=== PATIENT | female | born 1995 | race Caucasian/White ===

== ENCOUNTER 2017-04-10 06:00 | Inpatient (IN) ==
[2017-04-10] MEDS ORDERED: Famotidine 20 MG/2 ML VIAL IVP PRN (06:17)
[2017-04-10] MEDS ORDERED: *HR* Nalbuphine 20 MG/ML AMPUL IVP PRN (06:17)
[2017-04-10] MEDS ORDERED: Metoclopramide 10 MG/2 ML VIAL IVP PRN (06:17)
[2017-04-10] MEDS ORDERED: Naloxone 0.4 MG/ML INJ IVP PRN (06:17)
[2017-04-10] MEDS ORDERED: Penicillin G Potassium 5,000,000 UNIT in 0.9 % Sodium Chloride Mini Bag 100 ML IVPB ONE (06:17)
[2017-04-10] MEDS ORDERED: Ringers Solution, Lactated 1,000 ML ONE (06:29)
[2017-04-10] MEDS ORDERED: Oxytocin 20 units/ LR 1000 mL 20 UNIT/1,000 ML BAG IVC SCH (06:30)
[2017-04-10] MEDS ORDERED: Ringers Solution, Lactated 1,000 ML IVC SCH (06:30)
[2017-04-10 06:53] LABS: Basophils % 0.4 %; Eosinophils # 0.2 K/mcL (0.0-0.6); Eosinophils % 1.8 %; Hematocrit 37.3 % (35.3-44.9); Hemoglobin 12.1 g/dL (11.5-15.4); Immature Granulocytes % 0.7 % (0-4); Lymphocytes % 23.6 %; Mean Corpuscular HGB Conc 32.4 g/dL (31.6-35.5); Mean Corpuscular Hemoglobin 27.4 pg (28.0-33.3); Mean Corpuscular Volume 84.4 fL (83.0-100.0); Mean Platelet Volume 12.5 fL (9.4-12.4); Monocytes # 0.6 K/mcL (0.0-1.3); Monocytes % 7.1 %; Neutrophils # 5.7 K/mcL (1.6-8.9); Platelet Count 178 K/mcL (140-400); Red Blood Count 4.42 M/mcL (3.82-4.97); Red Cell Distribution Width 13.6 % (11.5-14.5); Segmented Neutrophils % 66.4 %
[2017-04-10 06:59] LABS: Amphetamine Screen,Urine Negative ng/mL (Cutoff=1000); Barbiturate Screen,Urine Negative ng/mL (Cutoff=200); Benzodiazepines Screen,Urine Negative ng/mL (Cutoff=200); Cannabinoid Screen,Urine Negative ng/mL (Cutoff = 50); Cocaine Screen,Urine Negative ng/mL (Cutoff= 300); Opiate Screen,Urine Negative ng/mL (Cutoff=300); Phencyclidine Screen,Urine Negative ng/mL (Cutoff=25)
[2017-04-10] MEDS ORDERED: miSOPROStol 100 MCG TABLET PO ONE (07:10)
[2017-04-10] MEDS ORDERED: Methylergonovine 0.2 MG/ML AMPUL IM ONE (07:10)
[2017-04-10 07:48] LABS: Platelet Estimate Normal (Normal)
[2017-04-10] MEDS ORDERED: Penicillin G Potassium 2,500,000 UNIT in 0.9 % Sodium Chloride 100 ML IVPB SCH (08:00)
--- NOTE | 2017-04-10 09:39 | OB Labor Progress Note ---
Date of Encounter: 04/10/17 Time of Encounter: 09:37 Labor Progress Note - Subjective Subjective: Patient resting in bed, coping well with contractions. - Cervix Cervix: 1-2/70/-2 - Heart Tones Heart Tones: 135 bpm, moderate variability, no accels, no decels - [place]: 2-4 min - Interventions Interventions: SVE Sylvester balloon 30 mL placed in cervix - Plan Plan: Continue labor management Leave Pitocin at current rate of 8 mu/min Anticipate
[2017-04-10] MEDS: Penicillin G Potassium 2,500,000 UNIT in 0.9 % Sodium Chloride 100 ML IVPB SCH ×2 (11:00→15:20)
[2017-04-10] MEDS: Ondansetron 4 MG/2 ML VIAL IVP PRN ×2 (11:05→14:57)
--- NOTE | 2017-04-10 11:19 | OB/GYN History & Physical ---
Date of Encounter: 04/10/17 Time of Encounter: 11:17 Assessment and Plan (1) 40 weeks gestation of Current visit: Yes Status: Acute (2) Group B streptococcal infection during Current visit: Yes Status: Acute (3) Encounter for elective induction of labor Current visit: Yes Status: Acute 21-year-old at 40+3 weeks gestation by meaghan GBS+ Elective IOL Plans epidural Plan: Admit to L&D CEFM Anesthesia consult Up ad ward until epidural placement LR @ 125mL Sylvester bulb placement May have nubain for pain management Dr. Boyd aware of POC and agrees History of Present Illness HPI: This is a 21 year old at 40+3 weeks' gestation by US who presents for induction of labor for postdates. Upon evaluation, she was noted to be 1-2/70/- 2 dilated and to have membranes intact. She was then admitted to L&D for management. She reports movements and denies contractions/rupture membranes/vaginal bleeding/headache/right upper abdominal pain/changes in vision. She desires future fertility. Plans for epidural Current OB history: Blood type B+ GBS positive Hepatitis B negative HIV negative RPR non-reactive Rubella immune Varicella nonimmune TWlbs BP range: 98-124/58-84 Meds: PNV Past Med Surg Social Fam HX - Past Medical History Medical history: no medical history Psychiatric history: no psych history - Social History Smoking Status: Never smoker Smokeless Tobacco Status: No Alcohol use: none Drug use: none - Family History Father Living Status: Still Living Obstetrical History - Pregnancies : 1 Para: 0 Term: 0 : 0 Ab's: 0 Livin Medications and Allergies Vit/Iron Fumarate/FA [ Tablet] 1 each PO DAILY 04/10/17 [ History] 3 Allergy/AdvReac Type Severity Reaction Status Date / Time No Known Allergies Allergy Verified 04/10/17 06:19 Review of System OB All systems PM: reviewed and no additional remarkable complaints except as stated Exam - Vital Signs Vital signs: Initial Vital Signs Temp Pulse BP 98.2 F 100 124/74 04/10/17 06:30 04/10/17 06:30 04/10/17 06:30 - Constitutional Constitutional: well developed, well nourished, no acute distress, average body habitus - HEENT HEENT: PERRL, Normocephaly, Mucus Membranes Moist - Neck Neck exam: full ROM, supple, trachea midline - Lungs Respiratory exam: CTAB - Cardiovascular Cardiovascular exam: RRR, +S1, +S2 - Breasts Breast: bilateral: normal - Abdomen Abdomen: Present: bowel sounds normal, gravid, non tender - Extremities Extremities exam: full ROM, joint swelling, radial pulses palpable and symmetrical - Vagina Vagina: Present: normal moisture - Cervix Dilation: 1 Effacement: 70 Station: -2 - Uterus Uterus exam: Present: normal size, normal contour Results Result Diagrams: 04/10/17 06:45 Abnormal lab results MCH 27.4 pg (28.0-33.3) L 04/10/17 06:45 MPV 12.5 fL (9.4-12.4) H 04/10/17 06:45 All other labs normal. - VTE Reasons for not Prescribing Prophylaxis: Treatment not Indicated - Low risk for VTE
--- NOTE | 2017-04-10 14:15 | Anesthesia Evaluation PreOp ---
Date of Encounter: 04/10/17 Time of Encounter: 14:13 - Past History Planned Operation: AMEE Cardiac History: Denies any Significant Hx Pulmonary History: Denies Any Significant HX PROJECT MANAGER PROCESS DEVELOPMENT History: Denies Any Significant HX Other Medical History: Denies Any Significant HX Anesthesia History: No Prior Anesthetic Complications (never had procedure requiring NA; denies personal or family h/o GA complications) : Yes Test: Positive Alcohol Use: none Drug use: none Medications and Allergies Vit/Iron Fumarate/FA [ Tablet] 1 each PO DAILY 04/10/17 [ History] 3 Allergy/AdvReac Type Severity Reaction Status Date / Time No Known Allergies Allergy Verified 04/10/17 06:19 - Meds/Allergy Pre-op Review Medications Reviewed: Yes Allergies Reviewed: Yes Beta Blockers on Current Med List: No Anesthesia Results - Labs 04/10/17 06:45 Anesthesia Exam 103/59, HR 72, RR 16 Height: 1.68m Weight: 73kg NPO (# of Hours): >8hrs Pain Scale: 3 Pain Scale Used: Numeric (1 - 10), Beard-Casanova (Faces) - HEENT Pupil (Motor): Pupils equal Mallampati: III Teeth: Normal Oral Opening: Less than or equal to 3 - PROJECT MANAGER PROCESS DEVELOPMENT LOC: Oriented PROJECT MANAGER PROCESS DEVELOPMENT Motor: Normal RUE, Normal LUE, Normal RLE, Normal LLE, Normal Face PROJECT MANAGER PROCESS DEVELOPMENT Sensory: Normal: RUE, LUE, RLE, LLE, Face - Cardiac Rhythm: Regular Murmur: None JVD: No Carotid Bruit: No - Pulmonary Breath Sounds: bilateral Clear Respiratory Effort: Symmetrical Anesthesia Assess/Plan ASA Score: 2 Modified [place] Scale for Level of Consciousness: Cooperative, oriented, and tranquil Anesthetic Plan: Regional Autologous Blood: No Monitoring Plan: Standard Monitors Recovery Plan: Other
[2017-04-10] MEDS ORDERED: *HR* FentaNYL (PF) 100 MCG/2 ML VIAL EP ONE (14:16)
[2017-04-10] MEDS ORDERED: Bupivacaine-MPF 0.25% 10 ML VIAL EP ONE (14:16)
[2017-04-10] MEDS ORDERED: *HR* FentaNYL (PF) 100 MCG/2 ML VIAL ONE (14:20)
[2017-04-10] MEDS ORDERED: Epidural Premix (fent/bupiv) 110 ML EP ONE (14:20)
[2017-04-10] MEDS ORDERED: Epidural Premix (fent/bupiv) 110 ML EP SCH (14:30)
--- NOTE | 2017-04-10 14:34 | OB Labor Progress Note ---
Date of Encounter: 04/10/17 Time of Encounter: 14:31 Labor Progress Note - Subjective Subjective: Patient resting in bed coping well with contractions. - Cervix Cervix: 4/80/-1 - Heart Tones Heart Tones: 140 bpm, moderate variability, +15x15 accels, variable and early decels noted, non recurrent. - [place]: q2 minutes - Interventions Interventions: SVE AROM for moderate amount of light meconium fluid IUPC placed - Plan Plan: Continue labor management Increase Pitocin as needed Patient may have epidural when she desires.
--- NOTE | 2017-04-10 15:24 | Anesthesia Procedures ---
Date of Encounter: 04/10/17 Time of Encounter: 14:59 Procedures: Anesthesia - Epidural/Spinal Patient ID/Chart reviewed: Yes Patient examined: Yes OB Eval: Gestational age: 40 weeks 3 days OB Eval: : 1 OB Eval: Hx Para: 0 OB Eval: Contractions: Non-stressed pattern Consent Obtained: Yes Supplemental Oxygen: None/Room Air Site Prep: Aseptic Technique, Sterile prep and drape, Povidone-Iodine 1% Patient position: upright Local Anesthetic: Lidocaine 1% Amount of Local Anesthetic used: 3 Touhy Needle Gauge: 18 Touhy Needle Depth (cm): 4 Catheter Depth at Skin (cm): 9 Test Dose (1.5% Lido + Epi): Volume given (mls): 5 Test Dose Result: Negative Loading Dose: 0.25% Marcaine (mls): 5 Loading Dose: Fentanyl (mcg): 100 Loading Dose Administered: Thru Catheter Infusion Med: 0.125% Bupivacaine w/ 2 mcg/ml Fentanyl Infusion Rate (mls/hr): 14 (w/ demand bolus of 5mL q20min PRN) Catheter Secured in Place: Tegaderm, Tape Interspace Used: L4-L5 Loss of Resistance (SHERRI): Yes Blood: No CSF: No Paresthesia: No Vitals + FHT's: Please see Veena CASTILLO's electronic record for VS entry
--- NOTE | 2017-04-10 16:45 | OB Labor Progress Note ---
Date of Encounter: 04/10/17 Time of Encounter: 16:43 Labor Progress Note - Subjective Subjective: Patient resting in bed, denies complaint of pain with epidural in place. - Cervix Cervix: 5-6/80/-1 - Heart Tones Heart Tones: 135 bpm, moderate variability, no accels, variable and early decelerations noted. - [place]: 2-3 - Interventions Interventions: SVE Repositioned on peanut ball. - Plan Plan: Continue labor management Anticipate
--- NOTE | 2017-04-10 20:30 | OB/GYN Procedure Note ---
Delivery - Delivery Date: 04/10/17 Provider: Molly Fitzpatrick Intrapartum events: none Delivery induction: oxytocin Delivery augmentation: rupture of membranes Delivery monitor: external FHT, external uterine Anesthesia: epidural Estimated Blood Loss: 300 - Infant (s) Infant A Delivery Date: 04/10/17 Infant Delivery Time: 20:08 Presentation: vertex Position: CLARITA Route of delivery: Gender: Female Viability: Viable Pounds: 7 Ounces: 4 Weight Gram: 3.28 kg at 1 minute: 7 at 5 mins: 9 Shoulder Dystocia: not encountered Specimens collected: cord blood Placenta: spontaneous Cord: 3 umbilical vessels - Repair Episiotomy: none Laceration Description: Periurethral - Complications Delivery complications: none, meconium Delivery comments: This is a 21-year-old G1 now P1 who was admitted for elective IOL. She progressed with pitocin augmentation and AROM to the second stage of labor. She pushed for minutes. She delivered a viable female , CLARITA, over an intact perineum. The was placed on the maternal abdomen where mouth and nares were bulb suctioned. A nuchal cord was not identified. scores were 7 at one minute and 9 at five minutes. Infant weight was 7lbs 4oz (3280g). The placenta delivered spontaneously, intact, Christianson, with a 3-vessel cord. Inspection revealed no perineal, sidewall, or cervical tears and bilateral periurethral tears. All lacerations were hemostatic and thus not repaired. EBL 300mL. Placenta and umbilical artery gases were not sent. There were no complications during the procedure. Mom and baby [id number] following delivery. Dr. Boyd was present for the entire delivery. - Disposition Mom disposition: stable in LDR disposition: stable in LDR
[2017-04-10] MEDS ORDERED: ceFAZolin 1,000 MG in 0.9 % Sodium Chloride Mini Bag 100 ML IVPB SCH (21:13)
--- NOTE | 2017-04-10 21:16 | Event Note ---
Date of Encounter: 04/10/17 Time of Encounter: 21:14 RN notified k [employer] school professional that pt had increase in bleeding. Equity Structurer to bedside immediately to find pt passing some blood and many clots. Fundal pressure applied and more blood and clots expressed. Bladder emptied with straight catheter for 450mL urine. Pt continued to bleed and was given 600mg cytotec rectally followed by Methergine IM. Bimanual examination was performed with sterile gloves. Bleeding slowed. Will continue to monitor closely. Ancef 1g q8h ordered to start on .
[2017-04-10] MEDS ORDERED: Benzocaine/Menthol 56 GM AEROSOL SPRAY TP PRN (23:20)
[2017-04-10] MEDS ORDERED: Acetaminophen 325 MG TABLET PO PRN (23:20)
[2017-04-10] MEDS ORDERED: Oxytocin 20 units/ LR 1000 mL 20 UNIT/1,000 ML BAG IVC ONE (23:24)
[2017-04-10] MEDS: Oxytocin 20 units/ LR 1000 mL 20 UNIT/1,000 ML BAG IVC SCH (23:53)
[2017-04-11] MEDS: ceFAZolin 1,000 MG in 0.9 % Sodium Chloride Mini Bag 100 ML IVPB SCH ×4 (00:38→15:36)
[2017-04-11] MEDS: Ibuprofen 600 MG TABLET PO PRN ×3 (00:57→22:04)
[2017-04-11 04:35] LABS: Basophils % 0.2 %; Eosinophils % 0.3 %; Hematocrit 31.1 % (35.3-44.9); Hemoglobin 10.2 g/dL (11.5-15.4); Immature Granulocytes % 0.4 % (0-4); Lymphocytes # 1.5 K/mcL (0.6-4.6); Lymphocytes % 11.7 %; Mean Corpuscular HGB Conc 32.8 g/dL (31.6-35.5); Mean Corpuscular Hemoglobin 27.7 pg (28.0-33.3); Mean Corpuscular Volume 84.5 fL (83.0-100.0); Mean Platelet Volume 11.6 fL (9.4-12.4); Monocytes # 0.8 K/mcL (0.0-1.3); Monocytes % 6.8 %; Platelet Count 142 K/mcL (140-400); Red Blood Count 3.68 M/mcL (3.82-4.97); Red Cell Distribution Width 13.7 % (11.5-14.5); Segmented Neutrophils % 80.6 %
[2017-04-11] MEDS: Oxytocin 20 units/ LR 1000 mL 20 UNIT/1,000 ML BAG IVC SCH (07:32)
[2017-04-11] MEDS: Prenatal Vit/FA 1 EACH TABLET PO SCH (08:07)
--- NOTE | 2017-04-11 14:56 | OB/GYN Progress Note ---
Date of Encounter: 04/11/17 Time of Encounter: 14:54 - Assessment and Plan (1) Vaginal delivery Current Visit: Yes Status: Acute Stable day #1 Continue current management plan Anticipate discharge tomorrow Subjective - Subjective Interval history: Pain well controlled on by mouth pain medicine, voiding without difficulties, breast-feeding Patient reports: appetite normal, voiding normally, pain well controlled, ambulating normally : doing well Objective - Latest Vital Signs Latest vital signs: Vital Signs Temp Pulse Resp BP Pulse Ox 04/11/17 07:20 98.2 F 98 108/65 04/11/17 01:15 99.5 F 113 14 125/78 97 04/11/17 00:15 99.9 F H 108 14 131/73 97 04/10/17 23:15 99 F 97 14 117/74 99 Intake and Output 04/10/17 04/11/17 04/11/17 23:59 07:59 15:59 Intake Total 1700 / 1700 Output Total 700 / 700 800 / 800 Balance 1000 / 1000 -800 / -800 Intake: IV Fluids 1100 / 1100 Pitocin 20 unit In 1,000 ml @ 1000 / 1000 125 mls/hr IVC .Q8H NICKOLAS Rx#: [id number] Ancef 1,000 MG In 0.9 % Sodium 100 / 100 Chloride (Mini-Bag +) 100 ML @ 200 mls/hr IVPB Q8HR NICKOLAS Rx#: [id number] Oral 600 / 600 Output: Urine 700 / 700 800 / 800 Other: Weight 70 kg - Exam Lungs: bilateral: normal Chest: Normal S1, Normal S2 Extremities: Present: normal Abdomen: Present: normal appearance, soft Uterus: Present: firm Uterus Position: At Umbilicus - Labs Labs: Laboratory Results - last 24 hr 04/11/17 04:17 WBC 12.4 H RBC 3.68 L Hgb 10.2 L D Hct 31.1 L MCV 84.5 MCH 27.7 L MCHC 32.8 RDW 13.7 Plt Count 142 MPV 11.6 Immature Gran % 0.4 Seg Neutrophils % 80.6 Lymphocytes % 11.7 Monocytes % 6.8 Eosinophils % 0.3 Basophils % 0.2 Neutrophils # 10.0 H Lymphocytes # 1.5 Monocytes # 0.8 Eosinophils # 0.0 Basophils # 0.0
[2017-04-12 08:05] VITALS: BP 112/78
--- NOTE | 2017-04-12 09:14 | Discharge Summary ---
Date of Encounter: 04/12/17 Time of Encounter: 09:37 - Discharge Diagnosis (1) Vaginal delivery Priority: Primary Status: Acute Comments: Pain well controlled with current dose/schedule of ibuprofen. Breast feeding with no difficulty. Tolerates PO diet, ambulation, and voiding. Denies depressive mood. Desires discharge home. Education and anticipatory guidance provided by Minda Ruffin CNM. - Discharge Medications Prescriptions: Ibuprofen [Motrin] 600 mg PO Q6HR PRN #120 tablet PRN Reason: Cramping Breast Pump [BREAST PUMP] 1 each .ROUTE AD #1 each Docusate [Colace] 100 mg PO BID #60 capsule Home Medications: Vit/Iron Fumarate/FA [ Tablet] 1 each PO DAILY 04/10/17 [ History] Acetaminophen [Tylenol] 650 mg PO Q6HR PRN tablet 04/12/17 [Rx] Breast Pump [BREAST PUMP] 1 each .ROUTE AD #1 each 04/12/17 [Rx] Docusate [Colace] 100 mg PO BID #60 capsule 04/12/17 [Rx] Ferrous Sulfate 325 mg PO DAILY tablet 04/12/17 [Rx] Ibuprofen [Motrin] 600 mg PO Q6HR PRN #120 tablet 04/12/17 [Rx] Vit/FA 1 each PO DAILY tablet 04/12/17 [Rx] Allergies/Adverse Reactions: 3 Allergy/AdvReac Type Severity Reaction Status Date / Time No Known Allergies Allergy Verified 04/10/17 06:19 Data Procedures and tests throughout hospitalization: Laboratory Tests 04/10/17 04/10/17 04/11/17 06:45 06:45 04:17 WBC 8.6 12.4 H RBC 4.42 3.68 L Hgb 12.1 10.2 L D Hct 37.3 31.1 L MCV 84.4 84.5 MCH 27.4 L 27.7 L MCHC 32.4 32.8 RDW 13.6 13.7 Plt Count 178 142 MPV 12.5 H 11.6 Immature Gran % 0.7 0.4 Seg Neutrophils % 66.4 80.6 Lymphocytes % 23.6 11.7 Monocytes % 7.1 6.8 Eosinophils % 1.8 0.3 Basophils % 0.4 0.2 Neutrophils # 5.7 10.0 H Lymphocytes # 2.0 1.5 Monocytes # 0.6 0.8 Eosinophils # 0.2 0.0 Basophils # 0.0 0.0 Platelet Estimate Normal Urine Opiates Screen Negative Ur Barbiturates Screen Negative Ur Phencyclidine Scrn Negative Ur Amphetamines Screen Negative U Benzodiazepines Scrn Negative Urine Cocaine Screen Negative U Marijuana (THC) Screen Negative Date of admission: 04/10/17 06:13 Primary care physician: PCP NONE Consults: 04/10/17 23:20 Consult to Staff Radiologist [CONS] Routine Comment: Vaginal delivery, consult needed Discharging clinician: Siddhartha Torrez Anticipated date of discharge: 04/12/17 - Patient Status Disposition: Home, Self-Care Condition: Good Functional capacity at discharge: independent ambulation Overall status at discharge: patient is progressing back to baseline - Discharge Instructions Follow Up With: NONE,PCP [Primary Care Provider] - Yoli Boyd DO [Partnered Physician] - - Diet and Activity Activity: resume usual activities as tolerated Diet: regular diet Hospital Course INSPECTOR SEMICONDUCTOR WAFER Hospital course: admitted for induction of labor at 40w3d for induction of labor. Delivered via . Did have notable post-delivery bleeding which was conservatively controlled (fundal pressure and cytotec). Hgb stable on recheck. Otherwise, course uneventful. - Delivery Date: 04/10/17 Provider: Molly Fitzpatrick Intrapartum events: none Delivery induction: oxytocin Delivery augmentation: rupture of membranes Delivery monitor: external FHT, external uterine Anesthesia: epidural Estimated Blood Loss: 300 - (s) Infant A Infant Delivery Date: 04/10/17 Delivery Time: 20:08 Presentation: vertex Position: CLARITA Route of delivery: Gender: Female Viability: Viable Pounds: 7 Ounces: 4 Weight Gram: 3.28 kg at 1 minute: 7 at 5 mins: 9 Shoulder Dystocia: not encountered Specimens collected: cord blood Placenta: spontaneous Cord: 3 umbilical vessels - Repair Episiotomy: none Laceration Description: Periurethral Time Attestation: Total time spent providing and/or coordinating discharge services: Time Spent: Less than 30 minutes Exam - Constitutional Vitals: Temp Pulse Resp BP Pulse Ox 98.2 F 84 16 112/78 97 04/12/17 08:04 04/12/17 08:04 04/12/17 08:04 04/12/17 08:04 04/11/17 21:05 Gen: AOx3, no acute distress, well-nourished HEENT: normocephalic, no scleral icterus/injection, pupils equal/round, oral mucosa pink/moist Cardio: RRR without murmurs or gallops Pulm: CTAB, no wheezes/rales/rhonchi, normal respiratory effort Abd: soft, nontender, uterine fundus not felt on palpation Ext/Neuro: pulses 2+ b/l DP, no significant pedal edema, patellar reflexes 2+ b/ l General appearance IM: A&O X 3, pleasant, answers questions appropriately - Respiratory Respiratory exam: Present: CTAB - Cardiovascular Cardiovascular exam IM: Present: RRR, +S1, +S2 - GI/Abdominal GI/Abdominal exam IM: normal bowel sounds - Uterine Tone: Firm Uterus Position: 1 Finger Below Umbilicus, Midline - Extremities Exam Extremities exam IM: Present: full ROM, normal capillary refill, normal inspection - Neurological Exam Neurological exam: alert, oriented X3, reflexes normal - VTE Reasons for not Prescribing Prophylaxis: Treatment not Indicated - Low risk for VTE - Attending Attestation I examined this patient and my medical decision-making was reviewed with the Resident Physician. I agree with the documented findings, disposition and treatment plan as described except to the extent set forth below. ALFREDA Brown
[2017-04-12] MEDS: Ibuprofen 600 MG TABLET PO PRN (09:18)
[2017-04-12] MEDS: Prenatal Vit/FA 1 EACH TABLET PO SCH (09:19)
== END 2017-04-12 11:45 | disposition home or self-care (01) | DRG 775 ==
LOC: 1NENULAB 06:13 → 1NENUOBS 22:42
PROVIDERS: ADMIT Obstetrics & Gynecology; ATTEND Obstetrics & Gynecology